=== PATIENT | male | born 1965 | race Caucasian/White ===

== ENCOUNTER 2017-11-29 08:40 | Observation (INO) | payer OTHER ==
[2017-11-28 12:20] LABS: BASOPHILS # (AUTO) 0.1 X10'3 (0-0.2); BASOPHILS % (AUTO) 0.9 % (0-1); EOSINOPHILS # (AUTO) 0.4 X10'3 (0-0.9); EOSINOPHILS % (AUTO) 4.7 % (0-6); HEMATOCRIT 43.4 % (42.0-52.0); HEMOGLOBIN 15.4 g/dl (14.0-17.9); LYMPHOCYTES # (AUTO) 3.2 X10'3 (1.1-4.8); LYMPHOCYTES % (AUTO) 35.2 % (21-51); MEAN CORPUSCULAR HEMOGLOBIN 31.1 PG (27.0-31.0); MEAN CORPUSCULAR HGB CONC 35.6 % (33.0-36.5); MEAN CORPUSCULAR VOLUME 87.3 FL (78-98); MONOCYTES # (AUTO) 0.6 X10'3 (0-0.9); MONOCYTES % (AUTO) 6.7 % (2-12); NEUTROPHILS # (AUTO) 4.8 X10'3 (1.8-7.7); NEUTROPHILS % (AUTO) 52.5 % (42-75); PLATELET COUNT 277 X10'3 (140-440); RED BLOOD COUNT 4.97 X10'6 (4.70-6.10); RED CELL DISTRIBUTION WIDTH 13.4 % (11.5-14.5); WHITE BLOOD COUNT 9.1 X10'3 (4.5-11.0)
[2017-11-28 12:31] LABS: PARTIAL THROMBOPLASTIN TIME 24 SECONDS (22-32); PROTHROMBIN TIME 10.6 SECONDS (9.0-12.0)
[2017-11-28 12:38] LABS: ALBUMIN 4.3 G/DL (3.4-5.0); ANION GAP 5 (8-16); BLOOD UREA NITROGEN 19 MG/DL (7-18); BUN/CREATININE RATIO 14.6 (5.4-32.0); CALCIUM 9.3 MG/DL (8.5-10.1); CHLORIDE 106 MMOL/L (99-107); GLUCOSE 112 MG/DL (70-104); POTASSIUM 4.4 MMOL/L (3.5-5.1); SODIUM 140 MMOL/L (135-145); TOTAL CARBON DIOXIDE 29.1 MMOL/L (24-32); eGFR 58 ML/MIN
[~2017-11-29] VITALS: Ht 188 cm; Wt 108.8 kg
[2017-11-29] VITALS (16 sets, daily range): BP systolic 110–126; BP diastolic 64–78
[~2017-11-29 08:40] MED LIST: ALLO100T PO; ASPI-1265 PO; ATOR10TA PO; LIT300C PO; METO25TA6 PO; NITR0.4T51 SL; TICA90TA PO; VENL150C58 PO; WARF10TA5 PO
[2017-11-29] MEDS ORDERED: diphenhydrAMINE 25mg capsule PO PRN (09:05)
[2017-11-29] MEDS ORDERED: LORazepam 0.5 MG tablet PO PRN (09:05)
[2017-11-29] MEDS ORDERED: ASPI81TA52 PO (10:39)
[2017-11-29] MEDS ORDERED: METO25TA6 PO (10:40)
[2017-11-29] MEDS ORDERED: NITR0.4T51 SL (10:41)
[2017-11-29] MEDS ORDERED: ALLO100T PO (10:42)
[2017-11-29] MEDS ORDERED: ATOR80TA PO (10:42)
[2017-11-29] MEDS ORDERED: LIT300C PO (10:43)
[2017-11-29] MEDS ORDERED: FENO48TA15 PO ×2 (10:47→11:12)
[2017-11-29] MEDS ORDERED: CLOP75TA15 PO (10:48)
[2017-11-29] MEDS ORDERED: CYAN100087 PO (10:55)
[2017-11-29] MEDS ORDERED: UBID150C PO (10:58)
[2017-11-29] MEDS ORDERED: RANO500T3 PO (10:59)
[2017-11-29] MEDS: normal saline 1000ml 1,000 ML IV SCH ×2 (11:08→18:44)
[2017-11-29] MEDS ORDERED: midazolam 2 mg/2 ml injection ONE (12:09)
[2017-11-29] MEDS ORDERED: heparin 1,000unit/ml 10ml vial 10 ML ONE (12:09)
[2017-11-29] MEDS ORDERED: nitroGLYCERIN-Tridil 50MG/D5W 250 ML IV ONE (12:09)
[2017-11-29] MEDS ORDERED: iohexol 350 MG/ML 50ML vial IV ONE (12:09)
[2017-11-29] MEDS ORDERED: iohexol 350MG/ML 100ml bottle IV ONE ×2 (12:09→12:40)
[2017-11-29] MEDS ORDERED: fentaNYL/PF 50MCG/1 ML 2ML syringe ONE (12:09)
[2017-11-29] MEDS ORDERED: LIDOcaine 1%/PF (10mg/ml) 5ml vial ONE (12:09)
[2017-11-29] MEDS ORDERED: heparin 1,000 UNITS/NS 500ml 500 ML ONE ×2 (12:17)
[2017-11-29] MEDS ORDERED: clopidogrel 300mg tablet ONE (13:18)
[2017-11-29 14:41] LABS: ISTAT Hct MIX 38 %PCV (42-52); ISTAT O2 SATURATION MIX VENOUS 70 % (60-80); ISTAT SOURCE MIX
[2017-11-29 14:41] LABS: ISTAT HGB ART 13.6 g/dl (14.0-18.0); ISTAT Hct ART 40 %PCV (42-52); ISTAT O2 SATURATION ARTERIAL 97 % (95-98); ISTAT SOURCE ART
[2017-11-29] MEDS ORDERED: aspirin 81mg tab.chew PO ONE (15:15)
[2017-11-29] MEDS ORDERED: proCHLORperazine 10 MG/2 ml inj IV PRN (15:15)
[2017-11-29] MEDS ORDERED: clopidogrel 300mg tablet PO ONE (15:15)
[2017-11-29] MEDS ORDERED: acetaminophen 325mg tablet PO PRN (15:15)
[2017-11-29] MEDS ORDERED: HYDROcodone/acetaminophen 10/325mg tab PO PRN ×2 (15:15)
[2017-11-29] MEDS ORDERED: OXAZEpam 15mg capsule PO PRN (15:20)
[2017-11-29] MEDS ORDERED: cyclobenzaprine 10mg tablet PO PRN (15:20)
[2017-11-29] MEDS ORDERED: nitroGLYCERIN 0.4mg SUBLingual tab SL PRN (19:15)
[2017-11-29] MEDS: docusate sod 100mg capsule PO SCH (20:00)
[2017-11-29] MEDS: ranolazine 500mg SR tablet (Q12H) PO SCH (20:31)
[2017-11-29] MEDS: metoprolol tartrate 25mg tablet PO SCH (20:31)
[2017-11-29] MEDS ORDERED: allopurinol 300 MG tablet PO SCH (21:00)
[2017-11-29] MEDS ORDERED: lithium carbonate 300mg SR tablet (LithoBID) PO SCH (21:00)
[2017-11-29] MEDS ORDERED: atorvastatin 20mg tablet PO SCH (21:00)
[2017-11-29] MEDS ORDERED: non-formulary drug (Atorvastatin Calcium* (Lipitor*) 1 TABLET) PO SCH (21:00)
[2017-11-29] MEDS ORDERED: magnesium hydroxide 30ml (MOM) UD suspension PO SCH (21:00)
[2017-11-30 02:00] VITALS: BP 108/63
[2017-11-30] MEDS: normal saline 1000ml 1,000 ML IV SCH (05:05)
[2017-11-30 05:45] LABS: BASOPHILS % (AUTO) 0.4 % (0-1); EOSINOPHILS # (AUTO) 0.5 X10'3 (0-0.9); EOSINOPHILS % (AUTO) 4.9 % (0-6); HEMATOCRIT 38.7 % (42.0-52.0); HEMOGLOBIN 13.2 g/dl (14.0-17.9); LYMPHOCYTES # (AUTO) 2.6 X10'3 (1.1-4.8); LYMPHOCYTES % (AUTO) 27.7 % (21-51); MEAN CORPUSCULAR HEMOGLOBIN 30.7 PG (27.0-31.0); MEAN CORPUSCULAR HGB CONC 34.1 % (33.0-36.5); MEAN CORPUSCULAR VOLUME 89.8 FL (78-98); MEAN PLATELET VOLUME 8.6 FL (7.4-10.4); MONOCYTES # (AUTO) 0.6 X10'3 (0-0.9); NEUTROPHILS # (AUTO) 5.8 X10'3 (1.8-7.7); PLATELET COUNT 226 X10'3 (140-440); RED BLOOD COUNT 4.31 X10'6 (4.70-6.10); RED CELL DISTRIBUTION WIDTH 13.1 % (11.5-14.5); WHITE BLOOD COUNT 9.5 X10'3 (4.5-11.0)
[2017-11-30 05:48] LABS: PROTHROMBIN TIME 10.2 SECONDS (9.0-12.0)
[2017-11-30 06:00] VITALS: BP 123/72
[2017-11-30 06:55] LABS: CHOLESTEROL 204 MG/DL (0-200); HDL CHOLESTEROL 17 MG/DL (35-60); LDL CHOLESTEROL 90 MG/DL (50-100); TRIGLYCERIDES 561 MG/DL (20-135)
[2017-11-30] MEDS: docusate sod 100mg capsule PO SCH (07:38)
[2017-11-30] MEDS ORDERED: VENLAFAXINE HCL PO SCH (08:00)
[2017-11-30] MEDS ORDERED: CYANOCOBALAMIN 1000 MCG PO SCH (08:00)
[2017-11-30] MEDS ORDERED: cyanocobalamin 500mcg tablet PO SCH (08:00)
[2017-11-30] MEDS ORDERED: aspirin 81mg tablet.DR PO SCH (08:00)
[2017-11-30] MEDS ORDERED: UBIDECARENONE PO SCH (08:00)
[2017-11-30] MEDS ORDERED: venlafaxine XR 75mg capsule (Q24H) PO SCH (08:00)
[2017-11-30] MEDS ORDERED: clopidogrel 75mg tablet PO SCH ×2 (08:00)
[2017-11-30] MEDS ORDERED: fenofibrate 48mg tablet PO SCH (08:00)
[2017-11-30] MEDS: ranolazine 500mg SR tablet (Q12H) PO SCH (08:16)
[2017-11-30] MEDS: metoprolol tartrate 25mg tablet PO SCH (08:18)
[2017-11-30] MEDS ORDERED: aspirin 325mg tablet PO SCH (08:30)
[2017-11-30] MEDS ORDERED: [UNRECOGNIZED DRUG - REMARK] PO NR (10:00)
== END 2017-11-30 10:34 | disposition home or self-care (01) ==
LOC: SSTAY O 08:40 → PCU 3S 20:44
PROVIDERS: ADMIT Internal Medicine Cardiovascular Disease; ATTEND Internal Medicine Cardiovascular Disease
DX: I25.110 Atherosclerotic heart disease of native coronary artery with unstable angina pectoris (principal); E78.5 Hyperlipidemia, unspecified; I10 Essential (primary) hypertension
CPT/HCPCS: 36415; 80048; 80061; 82803; 85014; 85025; 85347; 85610; 85730; 87070; 93005; 93460; A6257; A6449; C1725; C1760; C1769; C1874; C9600; G0378; J1644; J2001; J2250; J3010; J3490; J7030; Q0163; Q9967; 99152; 99153; A4620

== ENCOUNTER 2023-03-22 22:38 | Emergency (ER) | payer MEDICARE, OTHER ==
[~2023-03-22] VITALS: Ht 185.4 cm; Wt 115.9 kg
[~2023-03-22 22:38] MED LIST changes: -ASPI-1265 PO; +ASPI81TA52 PO; -ATOR10TA PO; +ATOR80TA PO; +CARI4.5C PO; +CHOL10002 PO; +CLOP75TA15 PO; +CYAN100087 PO; +FENO48TA15 PO; +LOP25T PO; -METO25TA6 PO; +RANO500T3 PO; -TICA90TA PO; +UBID150C PO; +WARF10TA45 PO; -WARF10TA5 PO
[2023-03-22 23:15] LABS: CLARITY,URINE CLEAR (Clear); COLOR,URINE YELLOW (Yellow); GLUCOSE, URINE NEGATIVE (Neg); KETONES,URINE NEGATIVE (Neg); LEUKOCYTE ESTERASE ,URINE NEGATIVE (Neg); NITRITES, URINE NEGATIVE (Neg); OCCULT BLOOD,URINE TRACE-INTACT (Neg); PH,URINE 6.5 (4.8-8.0); PROTEIN,URINE NEGATIVE (Neg); UROBILINOGEN,URINE 0.2 E.U/dL (0.2-1.0)
[2023-03-22 23:20] LABS: UA COLLECTION TYPE CLN CATCH MIDSTREAM
[2023-03-22 23:23] LABS: BACTERIA,URINE FEW /HPF (Neg); RBC,URINE 0-2 /HPF (0-2); WBC,URINE 0-4 /HPF (0-4)
[2023-03-22 23:24] LABS: MUCUS STRANDS NONE SEEN /LPF (Neg); SQUAMOUS EPITHELIAL CELL,UR NONE SEEN /LPF (FEW)
[2023-03-23 00:21] LABS: BASOPHILS # (AUTO) 0.1 X10'3 (0-0.2); BASOPHILS % (AUTO) 0.8 % (0-1); EOSINOPHILS # (AUTO) 0.4 X10'3 (0-0.9); EOSINOPHILS % (AUTO) 2.9 % (0-6); HEMATOCRIT 41.7 % (42.0-52.0); HEMOGLOBIN 13.9 g/dl (14.0-17.9); LYMPHOCYTES # (AUTO) 3.6 X10'3 (1.1-4.8); LYMPHOCYTES % (AUTO) 23.9 % (21-51); MEAN CORPUSCULAR HEMOGLOBIN 30.5 PG (27.0-31.0); MEAN CORPUSCULAR HGB CONC 33.4 g/dL (33.0-36.5); MEAN CORPUSCULAR VOLUME 91.5 FL (78-98); MEAN PLATELET VOLUME 8.5 FL (7.4-10.4); MONOCYTES # (AUTO) 1.2 X10'3 (0-0.9); MONOCYTES % (AUTO) 7.7 % (2-12); NEUTROPHILS # (AUTO) 9.8 X10'3 (1.8-7.7); NEUTROPHILS % (AUTO) 64.7 % (42-75); PLATELET COUNT 275 X10'3 (140-440); RED BLOOD COUNT 4.56 X10'6 (4.70-6.10); RED CELL DISTRIBUTION WIDTH 13.5 % (11.5-14.5); WHITE BLOOD COUNT 15.2 X10'3 (4.5-11.0)
[2023-03-23 00:33] LABS: ALANINE AMINOTRANSFERASE 32 U/L (12-78); ALBUMIN/GLOBULIN RATIO 1.3 (1.1-1.5); ALKALINE PHOSPHATASE 65 IU/L (46-116); ANION GAP 5 (8-16); ASPARTATE AMINO TRANSFERASE 16 U/L (10-37); BILIRUBIN,TOTAL 0.3 MG/DL (0.1-1.0); BLOOD UREA NITROGEN 21 MG/DL (7-18); BUN/CREATININE RATIO 15.8 (10.0-20.0); CALCIUM 9.2 MG/DL (8.5-10.1); CHLORIDE 106 MMOL/L (99-107); CREATININE 1.33 MG/DL (0.60-1.10); GLUCOSE 121 MG/DL (70-104); LIPASE 80 U/L (73-393); POTASSIUM 3.9 MMOL/L (3.5-5.1); SODIUM 137 MMOL/L (135-145); TOTAL CARBON DIOXIDE 26.1 MMOL/L (24-32); eGFR 55 ML/MIN
[2023-03-23] MEDS ORDERED: morphine 4 MG/ML inj SYRINge IV ONE (03:05)
[2023-03-23] MEDS ORDERED: iohexol 300mg/ml 100ml inj. ONE (04:15)
[2023-03-23 04:50] VITALS: BP 130/77
[2023-03-23] MEDS ORDERED: acetaminophen 1,000mg/100ml IV 100 ML IV STA (05:11)
[2023-03-23] MEDS ORDERED: ciprofloxacin PO (05:47)
[2023-03-23] MEDS ORDERED: HYDR-3965 PO (05:47)
[2023-03-23] MEDS ORDERED: ONDA4TAB12 PO (05:47)
[2023-03-23] MEDS ORDERED: METR-159 PO (05:47)
== END 2023-03-23 06:10 | disposition home or self-care (01) ==
LOC: ER 22:40
DX: K57.92 Diverticulitis of intestine, part unspecified, without perforation or abscess without bleeding (principal); I11.9 Hypertensive heart disease without heart failure; F32.A Depression, unspecified; F31.9 Bipolar disorder, unspecified; Z79.899 Other long term (current) drug therapy
CPT/HCPCS: 36415; 74177; 80053; 81001; 83690; 85025; 96365; 96375; 99285; J0131; J2270; J3490; Q9967

== ENCOUNTER 2024-06-09 11:53 | Emergency (ER) | payer MEDICARE, OTHER ==
[~2024-06-09] VITALS: Ht 188 cm; Wt 122.7 kg
[~2024-06-09 11:53] MED LIST changes: +ONDA-243 PO; +ciprofloxacin PO
[2024-06-09 11:57] VITALS: TEMP 98
[2024-06-09 14:28] LABS: BASOPHILS # (AUTO) 0.1 X10'3 (0-0.2); BASOPHILS % (AUTO) 0.9 % (0-1); EOSINOPHILS # (AUTO) 0.5 X10'3 (0-0.9); EOSINOPHILS % (AUTO) 4.8 % (0-6); HEMATOCRIT 42.6 % (42.0-52.0); HEMOGLOBIN 14.2 g/dl (14.0-17.9); LYMPHOCYTES # (AUTO) 3.9 X10'3 (1.1-4.8); LYMPHOCYTES % (AUTO) 36.3 % (21-51); MEAN CORPUSCULAR HEMOGLOBIN 30.4 PG (27.0-31.0); MEAN CORPUSCULAR HGB CONC 33.3 g/dL (33.0-36.5); MEAN CORPUSCULAR VOLUME 91.5 FL (78-98); MEAN PLATELET VOLUME 8.9 FL (7.4-10.4); MONOCYTES # (AUTO) 0.8 X10'3 (0-0.9); MONOCYTES % (AUTO) 7.6 % (2-12); NEUTROPHILS # (AUTO) 5.4 X10'3 (1.8-7.7); NEUTROPHILS % (AUTO) 50.4 % (42-75); PLATELET COUNT 272 X10'3 (140-440); RED BLOOD COUNT 4.66 X10'6 (4.70-6.10); RED CELL DISTRIBUTION WIDTH 14.1 % (11.5-14.5); WHITE BLOOD COUNT 10.7 X10'3 (4.5-11.0)
[2024-06-09 14:39] LABS: INR 2.4 INR; PROTHROMBIN TIME 24.1 SECONDS (9.0-12.0)
[2024-06-09 14:48] LABS: ALBUMIN 4.1 G/DL (3.4-5.0); ANION GAP 5 (8-16); BLOOD UREA NITROGEN 16 MG/DL (7-18); BUN/CREATININE RATIO 12.2 (10.0-20.0); CALCIUM 9.5 MG/DL (8.5-10.1); CHLORIDE 106 MMOL/L (99-107); CREATININE 1.31 MG/DL (0.60-1.10); GLUCOSE 108 MG/DL (70-104); POTASSIUM 4.1 MMOL/L (3.5-5.1); PRO BRAIN NATRIURETIC PEPTIDE 103 PG/ML (0-125); SODIUM 139 MMOL/L (135-145); TOTAL CARBON DIOXIDE 28.3 MMOL/L (24-32); eCRCL 70 ML/MIN; eGFR 56 ML/MIN
[2024-06-09] MEDS ORDERED: iohexol 350MG/ML 100ml bottle IV ONE (16:14)
[2024-06-09 17:55] VITALS: BP 123/69; PULSE 59; RESP 16; O2SAT 98
== END 2024-06-09 17:57 | disposition home or self-care (01) ==
LOC: ER 11:54
DX: G47.62 Sleep related leg cramps (principal); M79.661 Pain in right lower leg; R06.02 Shortness of breath; I25.10 Atherosclerotic heart disease of native coronary artery without angina pectoris; F32.A Depression, unspecified; F17.200 Nicotine dependence, unspecified, uncomplicated; Z79.899 Other long term (current) drug therapy; Z79.82 Long term (current) use of aspirin
CPT/HCPCS: 36415; 71045; 71275; 80048; 83880; 84484; 85025; 85610; 85730; 93005; 93971; 99285; Q9967

== ENCOUNTER 2025-07-07 18:49 | Emergency (ER) | payer MEDICARE, OTHER ==
[~2025-07-07] VITALS: Ht 185.4 cm; Wt 103.4 kg
[~2025-07-07 18:49] MED LIST changes: +ATOR-429 PO; -ATOR80TA PO
[2025-07-07 19:18] LABS: MEAN PLATELET VOLUME 8.1 FL (7.4-10.4); RED CELL DISTRIBUTION WIDTH 14.4 % (11.5-14.5)
[2025-07-07 19:26] LABS: LEUKOCYTE ESTERASE ,URINE NEGATIVE (Neg); NITRITES, URINE NEGATIVE (Neg); OCCULT BLOOD,URINE NEGATIVE (Neg)
[2025-07-07 19:41] LABS: CREATININE 1.50 MG/DL (0.60-1.10); TOTAL CARBON DIOXIDE 26.1 MMOL/L (24-32); eCRCL 58 ML/MIN; eGFR 48 ML/MIN
[2025-07-07 19:56] LABS: UA COLLECTION TYPE CLN CATCH MIDSTREAM
[2025-07-07 21:06] VITALS: TEMP 98.5
--- NOTE | 2025-07-07 22:37 | Physician Documentation ---
History of Present Illness ~ Chief Complaint: Abdominal Pain Stated Complaint: POSS DIVERTICULITIS Time Seen by MD: 22:36 Primary Medical Doctor: George HERNANDES Mode of Arrival: POV HPI Patient presents to the emergency room with 1.5 days of abdominal pain. No prior instances however he has had diverticulitis previously and that has a quality to it that has states feels similar however it has a bit different. No fevers. Positive symptoms of constipation. He has used nothing for constipation. No nausea or vomiting. No fevers. No prior abdominal surgeries. Medication Reconciliation Allergies: Coded Allergies: No Known Allergies (Unverified , 10/26/17) Scheduled Allopurinol* (Allopurinol*), 3 TAB PO HS, (Reported) Aspirin (Aspirin EC), 1 TABLET PO DAILY, (Reported) Atorvastatin Calcium* (Lipitor*), 1 TABLET PO HS, (Reported) Cariprazine Hydrochloride (Vraylar), 1 CAP PO DAILY, (Reported) Cholecalciferol (Vitamin D3) (Vitamin D3), 2 TAB PO DAILY, (Reported) Clopidogrel Bisulfate (Plavix), 75 MG PO DAILY, (Reported) Cyanocobalamin (Vitamin B-12) (Vitamin B-12), 1,000 MCG PO DAILY, (Reported) Fenofibrate Nanocrystallized (TRICOR tablet), 1 TAB PO DAILY, (Reported) [place] Carbonate (LITHIUM CARBONATE tablet), 1 TAB PO HS, (Reported) Metoprolol Tartrate* (Lopressor tablet*), 12 MG PO Q12H, (Reported) Ranolazine (Ranexa), 1 TAB PO Q12H, (Reported) Ubidecarenone (Co Q-10), 100 MG PO DAILY, (Reported) Venlafaxine Hcl (Venlafaxine Hcl Er), 2 CAP PO DAILY, (Reported) Warfarin Sodium (Warfarin Sodium), 7.5 MG PO DAILY, (Reported) [ciprofloxacin], 500 MG PO BID Scheduled PRN Nitroglycerin SL* (Nitrostat SL*), 1 TAB SL Q5MIN PRN for Chest pain Q5min PRNx3-call MD, (Reported) ONDANSETRON ODT 4mg tablet (Ondansetron Odt), 1 TABLET PO Q6H PRN for nausea/vomiting Past Medical History Past Medical History: Coronary Artery Disease, Myocardial Infarction, Pulmonary Embolism, Gout, Bipolar, Depression Past Surgical History: angioplasty Patient History: (CABG) Coronary artery bypass grafting FATHER (DM Type 2) Diabetes mellitus type 2 FATHER (PR) Myocardial infarction FATHER Asthma MOTHER DVT MOTHER Alcohol Use: None Drug Use: none Lives with: Spouse Lives In: Home Occupation: employed Review of Systems ROS All review of systems negative except as per HPI Physical Exam Vital Signs: Temperature: 98.5, Source: Oral, Heart Rate: 68, Respiratory Rate: 16, BP: 125/80, Pulse Oximetry: 99, Weight: 103.400 Oxygen Flow Rate: 0 Physical Exam General: Patient is awake, alert, oriented x4 in no acute distress Head: Normocephalic and atraumatic. Eyes: Conjunctival normal. EOMI. PERRL. ENT: Mucous membranes moist. Neck: Supple, trachea is midline. Chest: Clear to auscultation bilaterally without rales, rhonchi, or wheezes. There is no accessory muscle use or retractions. Cardiac: RRR without murmurs, gallops, or rubs. Abd: Soft, nondistended, mild diffuse abdominal tenderness without peritonitis Progress Results/Orders Results/Orders Orders - ANKIT HOOVER MD Straight Cath For Urine Sample (07/07/25 18:57) Ct Abdomen Pelvis (07/07/25 23:10) Piperacillin/Tazo 3.375gm/50ml (Zosyn 3. (07/07/25 23:25) Ketorolac Trometh 15mg/Ml Vial (Toradol (07/07/25 23:45) Completed Orders - ANKIT HOOVER MD Urinalysis, Cult If Indicated (07/07/25 18:57) Cbc/Diff (07/07/25 18:57) Lipase (07/07/25 18:57) CMP (07/07/25 18:57) Ct Abdomen Pelvis (07/07/25 23:10) Acetaminophen 1,000mg/100ml Iv (Ofirmev (07/07/25 22:45) Iohexol 300mg/Ml 100ml Inj. (Omnipaque-3 (07/07/25 22:54) Vital Signs 07/07/25 07/07/25 07/07/25 18:54 21:06 22:12 Temp 97.8 98.5 Pulse 69 68 Resp 16 16 16 B/P (MAP) 129/90 125/80 (95) Pulse Ox 99 99 O2 Flow Rate 0 Laboratory Tests Test 07/07/25 19:00 07/07/25 19:07 Urine Specimen Description Cln catch midstream Urine Color Yellow Urine Clarity Clear Urine pH 6.0 Urine Specific [place] 1.010 Urine Protein Negative Urine Glucose (UA) Negative Urine Ketones Negative Urine Occult Blood Negative Urine Nitrite Negative Urine Bilirubin Negative Urine Urobilinogen 0.2 Urine Leukocyte Esterase Negative Urine Culture Indicated Not ind Volume Urine Centrifuged 10 ml Urine Comment White Blood Count 19.8 H Red Blood Count 5.07 Hemoglobin 14.8 Hematocrit 44.6 Mean Corpuscular Volume 87.9 Mean Corpuscular Hemoglobin 29.2 Mean Corpuscular Hemoglobin Concent 33.2 Red Cell Distribution Width 14.4 Platelet Count 337 Mean Platelet Volume 8.1 Neutrophils (%) (Auto) 70.9 Lymphocytes (%) (Auto) 19.0 L Monocytes (%) (Auto) 7.1 Eosinophils (%) (Auto) 2.3 Basophils (%) (Auto) 0.7 Neutrophils # (Auto) 14.0 H Lymphocytes # (Auto) 3.7 Monocytes # (Auto) 1.4 H Eosinophils # (Auto) 0.5 Basophils # (Auto) 0.1 CBC Comment Sodium Level 137 Potassium Level 4.1 Chloride Level 103 Carbon Dioxide Level 26.1 Anion Gap 8 Blood Urea Nitrogen 17 Creatinine 1.50 H Estimated GFR/1.73 m2 48 BUN/Creatinine Ratio 11.3 Glucose Level 112 H Calcium Level 9.6 Total Bilirubin 0.7 Aspartate Amino Transf (AST/SGOT) 20 Alanine Aminotransferase (ALT/SGPT) 30 Alkaline Phosphatase 63 Total Protein 7.8 Albumin 4.4 Globulin 3.4 Albumin/Globulin Ratio 1.3 Lipase 62 Chemistry Comments Medical Decision Making Findings Patient presents to the emergency room for evaluation of abdominal pain. Differentials include but are not limited to urinary tract infection, appendici tis diverticulitis small-bowel obstruction cholecystitis therefore emergent labs ordered. Labs significant for significant elevation of white blood cell count therefore CT scan was ordered which was positive for diverticulitis. Patient is nontoxic appearing. Offered admission given his elevated white blood cell count however patient is declining would prefer to try outpatient basis. ER precautions discussed. Antibiotics initiated Departure Disposition: HOME / SELF CARE / HOMELESS Impression: Primary Impression: Diverticulitis Condition: Fair Discharge Instructions: Diverticulitis Referrals: NO PRIMARY CARE PROVIDER (PCP) Prescriptions Hydrocodone Bit/Acetaminophen 5/325 MG ([place] 5/325 MG) 5 Mg/325 Mg Tablet 1-2 TAB PO Q4-6 hours PRN for pain, #10 TAB Prov: ANKIT HOOVER MD 07/07/25 Ondansetron 8mg ODT (Ondansetron Odt) 8 Mg Tab.rapdis 1 TAB PO Q6H for nausea/vomiting for 3 Days, #12 TAB 0 Refills Prov: ANKIT HOOVER MD 07/07/25 Amox Tr/Potassium Clavulanate 875/125 MG (Augmentin 875/125 MG) 875 Mg-125 Mg Tablet 1 TAB PO Q12H for 10 Days, #20 TAB Prov: ANKIT HOOVER MD 07/07/25 Education Educated: Patient Educated regarding: diagnosis, treatment, need for follow up Signature Scribe Signature: No scribe Attestation: The note accurately reflects work and decisions made by me.Ankit Hoover MD 07/07/25 23:50 ANKIT HOOVER MD Jul 07, 2025 22:37
[2025-07-07] MEDS ORDERED: iohexol 300mg/ml 100ml inj. ONE (22:54)
--- NOTE | 2025-07-07 23:37 | RADIOLOGY REPORT ---
Exam: CT CT ABDOMEN PELVIS W/ IV CONTRAST History: abd pain Comparison Study: CT ABDOMEN PELVIS on DOS: 03/23/23 TECHNIQUE: A digital edge kitter image was obtained. During the uneventful, intravenous administration of c ontrast material, multislice data acquisition was obtained through the abdomen and pelvis. The data s et was subsequently reconstructed into multiplanar reformats. RADIATION DOSE: CTDI vol 33.25 mGy. DLP 1656.15 mGy.cm Findings: Lungs: Bibasilar atelectasis/scarring. Liver: Unremarkable. Spleen: Unremarkable. Pancreas: Unremarkable. Gallbladder: Unremarkable. Adrenals: Unremarkable Kidneys: Unremarkable. Pelvic Viscera: Unremarkable. Vasculature: Unremarkable. Retroperitoneum: Unremarkable. Bowel: There is colonic diverticulosis with prominent stranding about the sigmoid colon. There is no abscess. There is no bowel obstruction. Musculoskeletal: Degenerative changes of the lumbar spine. Soft tissues: Unremarkable Impression: 1. Findings as above suggestive of acute sigmoid diverticulitis. No abscess. A posttreatment follow-u p is suggested to ensure appropriate resolution and lack of underlying lesion. 2. Incidental findings as detailed.
[2025-07-07] MEDS ORDERED: AMOX-580 PO (23:50)
[2025-07-07] MEDS: acetaminophen 1,000mg/100ml IV 100 ML IV ONE (23:50)
[2025-07-07] MEDS: piperacillin/tazo 3.375gm/50ml 50 ML IV ONE (23:50)
[2025-07-07] MEDS ORDERED: HYDR-3965 PO (23:50)
[2025-07-07] MEDS ORDERED: ONDA-245 PO (23:50)
[2025-07-08] MEDS: ketorolac trometh 15mg/ml vial 15 MG/ML ML IV ONE (00:15)
[2025-07-08 00:34] VITALS: BP 128/82; PULSE 76; RESP 16; O2SAT 99
== END 2025-07-08 00:36 | disposition home or self-care (01) ==
LOC: ER 18:49
DX: K57.32 Diverticulitis of large intestine without perforation or abscess without bleeding (principal); F31.9 Bipolar disorder, unspecified; I25.10 Atherosclerotic heart disease of native coronary artery without angina pectoris; I25.2 Old myocardial infarction; Z95.1 Presence of aortocoronary bypass graft
CPT/HCPCS: 36415; 74177; 80053; 81003; 83690; 85025; 96365; 96375; 99285; J0131; J1885; J2543; Q9967